=== PATIENT | male | born 1975 | race Caucasian/White ===

== ENCOUNTER 2016-08-24 12:59 | Emergency (ER) | payer BC ==
[~2016-08-24] VITALS: Ht 182.9 cm; Wt 122.5 kg
[2016-08-24 13:00] VITALS: BP 142/83
[2016-08-24] MEDS ORDERED: LISI-538 PO (13:08)
[2016-08-24] MEDS ORDERED: NEXI40CA PO (13:08)
[2016-08-24] MEDS ORDERED: AUGMENTIN 875 MG TAB PO ONE (13:45)
[2016-08-24] MEDS ORDERED: ADACEL/BOOSTRIX VACCINE (DIPHTH/PERTUSS/ACELL/TETANUS)0.5ML SYR (90715) IM ONE (13:45)
[2016-08-24] MEDS ORDERED: ULTR50TA PO (14:12)
[2016-08-24] MEDS ORDERED: AUGM875T27 PO (14:12)
--- NOTE | 2016-08-25 21:39 | REP ---
Clinical: Trauma. Technique: AP and lateral views of the right humerus. Findings: No acute fracture dislocation. Skeletal structures, joint spaces, and surrounding soft tissues are normal. Impression: No acute fracture or dislocation. Signed by Tani Mccord MD 08/25/2016 09:31 P
== END 2016-08-24 14:25 | disposition home or self-care (01) ==
LOC: M ED 13:39
DX: S46.011A Strain of muscle(s) and tendon(s) of the rotator cuff of right shoulder, initial encounter (principal); S41.131A Puncture wound without foreign body of right upper arm, initial encounter; W22.8XXA Striking against or struck by other objects, initial encounter; Y92.099 Unspecified place in other non-institutional residence as the place of occurrence of the external cause; Y93.89 Activity, other specified; Y99.8 Other external cause status; I10 Essential (primary) hypertension; K21.9 Gastro-esophageal reflux disease without esophagitis; Z79.899 Other long term (current) drug therapy